=== PATIENT | female | born 1990 | race Two or more races ===

== ENCOUNTER 2023-09-18 08:47 | Inpatient (IN) | payer OTHER ==
[~2023-09-18] VITALS: Ht 175.3 cm; Wt 112.5 kg
[2023-09-18 09:35] LABS: HEMATOCRIT 24.9 % (36.0-45.00); MEAN CELL VOLUME 76.3 fL (80.00-100.00); MEAN CORPUSCULAR HGB CONC 32.9 g/dl (32.0-36.0); PLATELET COUNT 181 K/uL (150-450); RED BLOOD COUNT 3.27 M/uL (4.00-6.00); RED CELL DISTRIBUTION WIDTH 16.4 % (11.5-14.5)
[2023-09-18 09:46] LABS: HEMOGLOBIN 8.2 g/dL (12.0-15.00)
[2023-09-18 09:57] LABS: ALBUMIN 2.5 gm/dL (3.4-5.0); BILIRUBIN TOTAL 0.24 mg/dL (0.3-1.2); CALCIUM 8.3 mg/dL (8.5-10.1); CREATININE SERUM 0.49 mg/dL (0.55-1.02); GFR 144.56; GLOBULINA 4.6 G/DL (2.4-3.5); POTASSIUM 3.67 mEq/L (3.5-5.1); TOTAL PROTEIN 7.1 gm/dL (6.4-8.2)
[2023-09-18 09:58] LABS: INR 0.99; PARTIAL THROMBOPLASTIN TIME 26.2 SECONDS (22.0-34.0); PROTHROMBIN TIME 10.4 SECONDS (9.0-11.5)
[2023-09-18] MEDS ORDERED: PRENATAL TABLE1 EAC4 PO (09:58)
[2023-09-18] MEDS ORDERED: FOLIC ACID0.4 MG PO (09:58)
[2023-09-18 20:10] LABS: MEAN CELL VOLUME 76.2 fL (80.00-100.00); MEAN CORPUSCULAR HGB CONC 33.5 g/dl (32.0-36.0); PLATELET COUNT 188 K/uL (150-450); RED BLOOD COUNT 2.99 M/uL (4.00-6.00); RED CELL DISTRIBUTION WIDTH 16.5 % (11.5-14.5)
[2023-09-18 20:19] LABS: HEMOGLOBIN 7.6 g/dL (12.0-15.00); MEAN CORPUSCULAR HEMOGLOBIN 25.4 pg (27.00-32.0)
[2023-09-18 20:20] LABS: HEMATOCRIT 22.8 % (36.0-45.00)
[2023-09-19 09:32] LABS: MEAN CELL VOLUME 76.3 fL (80.00-100.00); MEAN CORPUSCULAR HGB CONC 33.5 g/dl (32.0-36.0); PLATELET COUNT 160 K/uL (150-450); RED BLOOD COUNT 2.86 M/uL (4.00-6.00); RED CELL DISTRIBUTION WIDTH 15.9 % (11.5-14.5)
[2023-09-19 09:44] LABS: MEAN CORPUSCULAR HEMOGLOBIN 25.5 pg (27.00-32.0)
[2023-09-19 09:45] LABS: HEMATOCRIT 21.8 % (36.0-45.00); HEMOGLOBIN 7.3 g/dL (12.0-15.00)
[2023-09-20 01:02] LABS: HEMATOCRIT 25.8 % (36.0-45.00); HEMOGLOBIN 8.4 g/dL (12.0-15.00); MEAN CELL VOLUME 79.3 fL (80.00-100.00); MEAN CORPUSCULAR HEMOGLOBIN 25.7 pg (27.00-32.0); MEAN CORPUSCULAR HGB CONC 32.6 g/dl (32.0-36.0); PLATELET COUNT 163 K/uL (150-450); RED BLOOD COUNT 3.26 M/uL (4.00-6.00); RED CELL DISTRIBUTION WIDTH 16.8 % (11.5-14.5)
[2023-09-20] MEDS ORDERED: FEOSOL325 MG PO (12:14)
[2023-09-20] MEDS ORDERED: VITAMIN C500 M6 PO (12:15)
== END 2023-09-20 12:57 | disposition home or self-care (01) | DRG 779 ==
LOC: LDR 08:47 → OB/GYN 12:15 → LDR 09-19 13:38
PROVIDERS: Obstetrics & Gynecology; ADMIT Obstetrics & Gynecology Obstetrics; ATTEND Obstetrics & Gynecology Obstetrics
PROC: 10D17Z9 Manual Extraction of Products of Conception, Retained, Via Natural or Artificial Opening (ICD-10-PCS; principal; 2023-09-18)
PROC: 3E033VJ Introduction of Other Hormone into Peripheral Vein, Percutaneous Approach (ICD-10-PCS; 2023-09-18)
PROC: 3E0DXGC Introduction of Other Therapeutic Substance into Mouth and Pharynx, External Approach (ICD-10-PCS; 2023-09-18)
DX: O03.1 Delayed or excessive hemorrhage following incomplete spontaneous abortion (principal); D62 Acute posthemorrhagic anemia; Z20.822 Contact with and (suspected) exposure to COVID-19; Z3A.19 19 weeks gestation of pregnancy